=== PATIENT | female | born 1950 | race African-American/Black ===

== ENCOUNTER 2017-03-13 19:12 | Emergency (ER) | payer SELFPAY ==
[2017-03-13 19:13] VITALS: BP 181/91; PULSE 124; RESP 16; TEMP 99.5; O2SAT 98
[2017-03-13 19:36] VITALS: BP 164/83; PULSE 120; RESP 20; O2SAT 100
[2017-03-13 20:00] VITALS: BP 173/88; PULSE 118; RESP 18; O2SAT 100
[2017-03-13] MEDS ORDERED: SODIUM CHLORIDE 0.9% FLUSH 10 ML FLUSH IVF PRN (20:00)
[2017-03-13] MEDS ORDERED: GLIM4TAB PO (20:24)
[2017-03-13] MEDS ORDERED: LISI-515 PO (20:24)
[2017-03-13] MEDS ORDERED: TRAD5TAB PO (20:24)
[2017-03-13] MEDS ORDERED: VITATAB11 PO (20:24)
[2017-03-13] MEDS ORDERED: ATOR10TA15 PO (20:24)
[2017-03-13 20:26] LABS: AUTOMATED NEUTROPHIL # 7.8 TH/MM3 (1.8-7.7); BASOPHIL # 0.1 TH/MM3 (0-0.2); BASOPHIL % 0.7 % (0.0-2.0); EOSINOPHIL # 0.6 TH/MM3 (0-0.4); EOSINOPHIL % 5.7 % (0.0-4.0); HEMATOCRIT 29.9 % (35.0-46.0); HEMO FLAGS DIFF FINAL; LYMPH % 19.6 % (9.0-44.0); LYMPHOCYTE # 2.2 TH/MM3 (1.0-4.8); MEAN CELL VOLUME 82.2 FL (80.0-100.0); MEAN CORPUSCULAR HEMOGLOBIN 26.9 PG (27.0-34.0); MEAN CORPUSCULAR HGB CONC 32.7 % (32.0-36.0); MONO % 3.9 % (0.0-8.0); NEUT % 70.1 % (16.0-70.0); PLATELET COUNT 320 TH/MM3 (150-450); RED BLOOD COUNT 3.63 MIL/MM3 (4.00-5.30); RED CELL DISTRIBUTION WIDTH 15.1 % (11.6-17.2); WHITE BLOOD COUNT 11.2 TH/MM3 (4.0-11.0)
[2017-03-13 20:30] VITALS: BP 159/81; PULSE 110; RESP 18; O2SAT 100
[2017-03-13 20:48] LABS: ALT (GPT) 27 U/L (10-53)
[2017-03-13 20:52] LABS: ALKALINE PHOSPHATASE 77 U/L (45-117); TOTAL BILIRUBIN ADULT 0.3 MG/DL (0.2-1.0)
[2017-03-13 20:53] LABS: ANION GAP 8 MEQ/L (5-15); AST (GOT) 48 U/L (15-37); BICARBONATE 23.4 MEQ/L (21.0-32.0); BLOOD UREA NITROGEN 10 MG/DL (7-18); CHLORIDE 107 MEQ/L (98-107); GLOMERULAR FILTRATION RATE 56 ML/MIN (>89); POTASSIUM 4.1 MEQ/L (3.5-5.1); SODIUM (NA) 138 MEQ/L (136-145)
[2017-03-13 21:00] VITALS: BP 167/81; PULSE 108; RESP 18; O2SAT 100
--- NOTE | 2017-03-13 21:05 | PD ---
HPI . Weak and dizzy Chief Complaint: General Weakness Time Seen by Provider: 19:38 Travel History International Travel<30 days: Yes Contact w/Intl Traveler<30days: Yes Name of Country Traveled to: [place] Traveled to known affect area: No History of Present Illness HPI This patient presents with chief complaint of feeling weak and dizzy. Onset was in January. She was diagnosed with diabetes at that time. She also has a history of hypertension. She is on medication for both hypertension and diabetes who states that she has been compliant with her medications. She just got to the [facility] 4 days ago to visit her sister. Her sister decided to take her to the doctor today. She was seen at the [facility] and was found to be tachycardic. The provider at [facility] recommended that she come to the emergency department for further evaluation. The patient has had some intermittent chest pressure and shortness of breath. The symptoms are exacerbated with exertion. She has had a recent flight here from [facility]. Her sister also reports an episode of dysphasia in February. It spontaneously resolved after a few days. [facility] Past Medical History Cardiovascular Problems: Yes (htn) Cerebrovascular Accident: Yes (possible TIA in February ) Diabetes: Yes Patient Takes Glucophage: Yes (Glimepiride 4mg (1/2 tab BID)) Hypertension: Yes Triglycerides - High: Yes Family History Family Breast Cancer: Yes Family Hypercholesterolemia: Yes Social History Alcohol Use: No Tobacco Use: No Substance Use: No Allergies-Medications (Allergen,Severity, Reaction): Coded Allergies: No Known Allergies (Unverified , 03/13/17) Reported Meds & Prescriptions Reported Meds & Active Scripts Active Reported Vitamin B Complex (B-Complex Vitamins) 1 Tab 1 Tab PO DAILY Tradjenta (Linagliptin) 5 Mg Tab 5 Mg PO DAILY Lisinopril 20 Mg Tab 20 Mg PO DAILY Glimepiride 4 Mg Tab 4 Mg PO BIDAC Atorvastatin (Atorvastatin Calcium) 10 Mg Tab 10 Mg PO HS Review of Systems ROS Limitations: Language Barrier Except as stated in HPI: all other systems reviewed are Neg Eyes: No: Blurred Vision HENT: Positive: Lightheadedness, No: Headaches Cardiovascular: Positive: Chest Pain or Discomfort Respiratory: Positive: Shortness of Breath Gastrointestinal: No: Nausea, Vomiting, Diarrhea, Abdominal Pain Genitourinary: No: Urgency, Frequency, Dysuria Neurologic: Positive: Weakness, Dizziness, Other (dysphasia a month ago), No: Syncope Physical Exam Narrative GENERAL: Patient is awake and alert. She does not speak [place]. She does not appear to be in distress. SKIN: warm/dry. HEAD: Normocephalic. Atraumatic. EYES: Pupils equal and round. No scleral icterus. No injection or drainage. ENT: No nasal bleeding or discharge. Mucous membranes pink and moist. NECK: Trachea midline. Full range of motion without pain.. CARDIOVASCULAR: Sinus tachycardia. Heart sounds are normal. RESPIRATORY: No accessory muscle use. Clear to auscultation. Breath sounds equal bilaterally. GASTROINTESTINAL: Abdomen soft. Nontender. Bowel sounds present. Nondistended. MUSCULOSKELETAL: No obvious deformities. NEUROLOGICAL: Awake and alert. She can close her eyes equally. Her smile is symmetric. Tongue protrudes in the midline. Return To Vendor are full and equal. Finger- nose-finger exam is intact. PSYCHIATRIC: Unable to assess. Data Data Last Documented VS Vital Signs Date Time Temp Pulse Resp B/P (MAP) Pulse Ox O2 Delivery O2 Flow Rate FiO2 03/13/17 21:00 108 18 167/81 (109) 100 Room Air 03/13/17 19:13 99.5 Orders Orders Complete Blood Count With Diff (03/13/17 19:59) Comprehensive Metabolic Panel (03/13/17 19:59) Troponin I (03/13/17 19:59) Urinalysis - C+S If Indicated (03/13/17 19:59) Iv Access Insert/Monitor (03/13/17 19:59) Electrocardiogram (03/13/17 19:59) Ecg Monitoring (03/13/17 19:59) Oximetry (03/13/17 19:59) Oxygen Administration (03/13/17 19:59) Ct Pulmonary Angiogram (03/13/17 19:59) Sodium Chloride 0.9% Flush (Ns Flush) (03/13/17 20:00) Ct Brain W/O Iv Contrast(Rout) (03/13/17 19:59) Iohexol 350 Inj (Omnipaque 350 Inj) (03/13/17 22:35) Labs Laboratory Tests Test 03/13/17 20:10 03/13/17 21:37 White Blood Count 11.2 TH/MM3 Red Blood Count 3.63 MIL/MM3 Hemoglobin 9.8 GM/DL Hematocrit 29.9 % Mean Corpuscular Volume 82.2 FL Mean Corpuscular Hemoglobin 26.9 PG Mean Corpuscular Hemoglobin Concent 32.7 % Red Cell Distribution Width 15.1 % Platelet Count 320 TH/MM3 Mean Platelet Volume 7.9 FL Neutrophils (%) (Auto) 70.1 % Lymphocytes (%) (Auto) 19.6 % Monocytes (%) (Auto) 3.9 % Eosinophils (%) (Auto) 5.7 % Basophils (%) (Auto) 0.7 % Neutrophils # (Auto) 7.8 TH/MM3 Lymphocytes # (Auto) 2.2 TH/MM3 Monocytes # (Auto) 0.4 TH/MM3 Eosinophils # (Auto) 0.6 TH/MM3 Basophils # (Auto) 0.1 TH/MM3 CBC Comment DIFF FINAL Differential Comment Blood Urea Nitrogen 10 MG/DL Creatinine 1.18 MG/DL Random Glucose 180 MG/DL Total Protein 9.2 GM/DL Albumin 3.1 GM/DL Calcium Level 8.9 MG/DL Alkaline Phosphatase 77 U/L Aspartate Amino Transf (AST/SGOT) 48 U/L Alanine Aminotransferase (ALT/SGPT) 27 U/L Total Bilirubin 0.3 MG/DL Sodium Level 138 MEQ/L Potassium Level 4.1 MEQ/L Chloride Level 107 MEQ/L Carbon Dioxide Level 23.4 MEQ/L Anion Gap 8 MEQ/L Estimat Glomerular Filtration Rate 56 ML/MIN Troponin I 0.02 NG/ML Urine Color YELLOW Urine Turbidity CLEAR Urine pH 6.[address] 1.012 Urine Protein TRACE mg/dL Urine Glucose (UA) NEG mg/dL Urine Ketones NEG mg/dL Urine Occult Blood SMALL Urine Nitrite NEG Urine Bilirubin NEG Urine Urobilinogen LESS THAN 2.0 MG/DL Urine Leukocyte Esterase NEG Urine RBC 2 /hpf Urine WBC 2 /hpf Urine Squamous Epithelial Cells <1 /hpf Microscopic Urinalysis Comment CULT NOT INDICATED MDM Medical Decision Making Medical Screen Exam Complete: Yes Emergency Medical Condition: Yes Interpretation(s) EKG shows sinus tachycardia at a rate of 112. She has some nonspecific ST-T wave changes. No acute changes. Differential Diagnosis Differential diagnosis of tachycardia includes but is not limited to PSVT, atrial fibrillation with a rapid ventricular response, sinus tachycardia (due to hypovolemia, anemia, thyrotoxicosis, PE) Narrative Course This patient is visiting here from [facility]. She has been there for 4 days. She has been having problems with feeling weak and dizzy for several months. Her sister took her to the [facility] today for evaluation. She was found to be tachycardic. The sister reports that she has had noted dyspnea on exertion and has been complaining intermittently with some chest discomfort. His sister further reports an episode of dysphasia a month ago. She has a known history of hypertension or diabetes. She has been compliant with her medications. CBC & BMP Diagram 03/13/17 20:10 Total Protein 9.2 H, Albumin 3.1 L, Calcium Level 8.9, Alkaline Phosphatase 77, Aspartate Amino Transf (AST/SGOT) 48 H, Alanine Aminotransferase (ALT/SGPT) 27, Total Bilirubin 0.3 CT for PE: 1. No evidence of pulmonary embolism. 2. Lungs are clear. CT head: Negative noncontrast CT Diagnosis Primary Impression: Tachycardia Patient Instructions: General Instructions, Weakness (DC) Disposition: 01 DISCHARGE HOME Condition: Stable Coby Chavez MD Mar 13, 2017 21:05
[2017-03-13 21:48] LABS: BLOOD, URINE SMALL (NEG); COMMENT (UR) CULT NOT INDICATED; CULTURE IF INDICATED CULT NOT INDICATED; GLUCOSE,URINE NEG (NEG); KETONE, URINE NEG (NEG); NITRITE,URINE NEG (NEG); PH, URINE 6.5 (5.0-8.5); SQUAMOUS EPITHELIAL CELL URINE <1 /hpf (0-5); URINE COLOR YELLOW (YELLW/STRAW)
--- NOTE | 2017-03-13 22:24 | RADRPT ---
EXAM DATE/TIME: 03/13/2017 22:16 [facility] COMPARISON: No previous studies available for comparison. INDICATIONS : Dizziness, weakness. RADIATION DOSE: 40.30 CTDIvol (mGy) MEDICAL HISTORY : Hypertension. Diabetes SURGICAL HISTORY : None. ENCOUNTER: Initial ACUITY: 1 day PAIN SCALE: 0/10 LOCATION: Right chest TECHNIQUE: Multiple contiguous axial images were obtained of the head. Using automated exposure control and adj ustment of the mA and/or kV according to patient size, radiation dose was kept as low as reasonably a chievable to obtain optimal diagnostic quality images. DICOM format image data is available electro nically for review and comparison. FINDINGS: CEREBRUM: The ventricles are normal for age. No evidence of midline shift, mass lesion, hemorrhage or acute in farction. No extra-axial fluid collections are seen. POSTERIOR FOSSA: The cerebellum and brainstem are intact. The 4th ventricle is midline. The cerebellopontine angle i s unremarkable. EXTRACRANIAL: The visualized portion of the orbits is intact. SKULL: The calvaria is intact. No evidence of skull fracture. CONCLUSION: Negative noncontrast CT Heriberto Benson MD on March 13, 2017 at 22:21 Board Certified Radiologist. This report was verified electronically.
[2017-03-13] MEDS ORDERED: IOHEXOL 350 MG/ML 10 ML VIAL (for RAD DIAG) IVCONTRAST ONE (22:35)
--- NOTE | 2017-03-13 22:42 | RADRPT ---
EXAM DATE/TIME: 03/13/2017 22:23 [facility] COMPARISON: No previous studies available for comparison. INDICATIONS : Dizziness, weakness. Shortness of breath. IV CONTRAST: 75 cc Omnipaque 350 (iohexol) IV RADIATION DOSE: 23.07 CTDIvol (mGy) MEDICAL HISTORY : Hypertension. Diabetes SURGICAL HISTORY : None. ENCOUNTER: Initial ACUITY: 1 day PAIN SCALE: 0/10 LOCATION: chest TECHNIQUE: Volumetric scanning of the chest was performed using a pulmonary embolism protocol MIP images were re constructed. Using automated exposure control and adjustment of the mA and/or kV according to patien t size, radiation dose was kept as low as reasonably achievable to obtain optimal diagnostic quality images. DICOM format image data is available electronically for review and comparison. Follow-up recommendations for detected pulmonary nodules are based at a minimum on nodule size and pa tient risk factors according to Fleischner Society Guidelines. FINDINGS: PULMONARY ARTERIES: No filling defects are seen in the pulmonary arteries through the segmental level. LUNGS: There is no consolidation or pneumothorax . No concerning pulmonary nodule is visualized. PLEURAE: There is no pleural thickening or pleural effusion. MEDIASTINUM: There is good visualization of the great vessels of the middle mediastinum. No evidence of mediastin al or hilar adenopathy/mass. MUSCULOSKELETAL: Within normal limits for patient age. MISCELLANEOUS: The visualized upper abdominal organs demonstrate no acute abnormality. CONCLUSION: 1. No evidence of pulmonary embolism. 2. Lungs are clear. Heriberto Benson MD on March 13, 2017 at 22:39 Board Certified Radiologist. This report was verified electronically.
--- NOTE | 2017-03-14 13:23 | EKG ---
Date Performed: 03/13/2017 Time Performed: 20:23:02 PTAGE: 66 years EKG: SINUS TACHYCARDIA NONSPECIFIC T-WAVE ABNORMALITY ABNORMAL RHYTHM ECG NO PREVIOUS TRACING DOCTOR: Carroll Richardson Interpretating Date/Time 03/14/2017 13:16:58
== END 2017-03-14 00:10 | disposition home or self-care (01) ==
LOC: NEPE 19:12
DX: R00.0 Tachycardia, unspecified (principal); R53.1 Weakness; R42 Dizziness and giddiness; R06.02 Shortness of breath; R07.9 Chest pain, unspecified; R94.31 Abnormal electrocardiogram [ECG] [EKG]; I10 Essential (primary) hypertension; E11.9 Type 2 diabetes mellitus without complications; Z86.73 Personal history of transient ischemic attack (TIA), and cerebral infarction without residual deficits
CPT/HCPCS: 70450; 71275; 80053; 81001; 84484; 85025; 93005; 99285; Q9967